=== PATIENT | male | born 1990 | race Caucasian/White ===

== ENCOUNTER 2016-09-25 08:25 | Emergency (ER) | payer MEDICAID ==
--- NOTE | 2016-09-25 09:41 | EDPHY ---
H & P Time Seen by Provider: 09/25/16 09:16 HPI/ROS: CHIEF COMPLAINT: Right ear pain HISTORY OF PRESENT ILLNESS: 25-year-old male presents to the emergency department with pain in his right ear. Patient states that he had water in his ear and then put his ear buds in and now has pain in his right ear. He has also had cold symptoms over last several days. No fevers or chills. He is complaining of throbbing pain in his right ear. He has some muffled hearing as well. No drainage from the ear. No symptoms in the left ear. No chest pain or difficulty breathing. No cough. No other reported trauma. REVIEW OF SYSTEMS: Constitutional: No fever, no chills. Eyes: No double or blurry vision. ENT: Ear pain as above. No sore throat. Respiratory: No cough, no shortness of breath. Cardiac: No chest pain. Gastrointestinal: No abdominal pain, vomiting or diarrhea. Genitourinary: No dysuria. Musculoskeletal: No neck or back pain. Skin: No rashes. Neurological: No headache. Past Medical/Surgical History: Hepatitis-C Social History: Single Smoking Status: Current every day smoker Physical Exam: General Appearance: Alert, no distress. 99% on room air, afebrile 36.7 Eyes: Pupils equal and round. Extraocular motions are all intact. ENT: Mouth: Mucous membranes moist. Right external auditory canal is erythematous. No obvious swelling. No exudate. The right tympanic membrane is erythematous and bulging. Cloudy. No bony landmarks visualized. Right tragal motion tenderness. No pain over the right mastoid. Left ear is clear. Respiratory: No wheezing, rhonchi, or rales, lungs are clear to auscultation. Cardiovascular: Regular rate and rhythm. Gastrointestinal: Abdomen is soft and nontender, no masses, no rebound or guarding, bowel sounds normal. Neurological: Alert and oriented x 3, cranial nerves II through XII grossly intact Skin: Warm and dry, no rashes. Musculoskeletal: Nontender to palpate along the cervical, thoracic or lumbar spine. Neck is supple. Extremities: Full range of motion and no peripheral edema. Psychiatric: Patient is oriented X 3, there is no agitation. Constitutional: Initial Vital Signs Temperature (C) 36.7 C 09/25/16 08:35 Heart Rate 51 L 09/25/16 08:35 Respiratory Rate 20 09/25/16 08:35 Blood Pressure 134/85 H 09/25/16 08:35 O2 Sat (%) 99 09/25/16 08:35 O2 Delivery Mode Room Air Allergies/Adverse Reactions: No Known Allergies Allergy (Unverified 09/25/16 08:34) Home Medications: Medication Instructions Recorded Amoxicillin/Clavulanate Pot 875 mg PO BID #20 tab 09/25/16 [Augmentin 875 mg tab] Ciprofloxacin HCl/Dexameth 4 drops RTEAR BID #0 drops.susp 09/25/16 [Ciprodex Otic Suspension] Ibuprofen [Motrin (*)] 600 mg PO TID PRN #30 tab 09/25/16 Medical Decision Making ED Course/Re-evaluation: Clinically I think this patient has right otitis media and right otitis externa. He will be treated with Ciprodex otic drops and Augmentin. He was given primary care referral. He was instructed to return if he develops fever or change in symptoms. Differential Diagnosis: Including but not limited to otitis media, otitis externa, malignant otitis, barotrauma Departure - Departure Disposition: Home, Routine, Self-Care Clinical Impression: Left otitis media Qualifiers: Otitis media type: suppurative Chronicity: acute Recurrence: not specified as recurrent Spontaneous tympanic membrane rupture: without spontaneous rupture Qualifier Code: (H66.002) Acute suppurative otitis media without spontaneous rupture of ear drum, left ear Left otitis externa Qualifiers: Otitis externa type: unspecified type Chronicity: acute Qualifier Code: ( H60.502) Unspecified acute noninfective otitis externa, left ear Condition: Good Instructions: Otitis Media (ED), Otitis Externa (ED) Additional Instructions: Ciprodex twice daily x 7days. Augmentin 875 mg twice daily for 10 days. Ibuprofen 600 mg every 8 hours as needed for pain. Follow up with primary care provider to recheck. Referrals: [facility] [Outside] - 5-7 days, call for appt. Prescriptions: Amoxicillin/Clavulanate Pot [Augmentin 875 mg tab] 875 mg PO BID #20 tab Ciprofloxacin HCl/Dexameth [Ciprodex Otic Suspension] 4 drops RTEAR BID #0 drops.susp Ibuprofen [Motrin (*)] 600 mg PO TID PRN #30 tab PRN Reason: Pain, Moderate
[2016-09-25] MEDS ORDERED: IBUPROFEN 600 MG TAB PO ONE (09:52)
[2016-09-25 09:58] VITALS: BP 140/79; PULSE 78; RESP 18; TEMP 98.2; O2SAT 95
== END 2016-09-25 09:58 | disposition home or self-care (01) ==
DX: H66.002 Acute suppurative otitis media without spontaneous rupture of ear drum, left ear (principal); H60.502 Unspecified acute noninfective otitis externa, left ear; F17.200 Nicotine dependence, unspecified, uncomplicated